=== PATIENT | male | born 1965 ===

== ENCOUNTER 2016-10-10 06:42 | Day surgery (SDC) | payer MEDICAID ==
[2016-10-10 07:08] VITALS: BMI 26.6
[2016-10-10] MEDS ORDERED: Lactated Ringer's 500 ML IV ONE (08:00)
[2016-10-10] MEDS ORDERED: Propofol 10 mg/ml Inj (20 ML) ONE ×2 (08:08→08:09)
[2016-10-10 08:52] VITALS: O2SAT 100
[2016-10-10 13:12] VITALS: BP 118/76; PULSE 52; RESP 15; TEMP 97.5
== END 2016-10-10 09:40 | disposition home or self-care (01) ==
LOC: C.ENDO 06:42
PROVIDERS: ATTEND Internal Medicine Gastroenterology
DX: D12.5 Benign neoplasm of sigmoid colon (principal); K64.8 Other hemorrhoids
CPT/HCPCS: 45388; 88305; J2001; J2704; J7120